=== PATIENT | female | born 1970 | race Caucasian/White ===

== ENCOUNTER 2025-07-10 07:15 | Day surgery (SDC) | payer OTHER, SELFPAY ==
[2025-07-10] VITALS (24 sets, daily range): BP systolic 81–121; BP diastolic 46–79; BMI 36.8; BMI 37.9
[2025-07-10] MEDS: NORMOSOL-R/PLASMALYTE-A 1000 IV ×2 (11:46→21:40)
[2025-07-10] MEDS: ZOFRAN 4 MG IV (17:04)
[2025-07-10] MEDS: SUBLIMAZE 25 MCG IV ×2 (18:40→19:23)
--- NOTE | 2025-07-10 20:37 | PTCARENOTE ---
Pt admitted to 2114 from PACU. VSS. AAOX3. c/o pain t/o abdomen. lap sites x 6 CDI, JOCELINE. Pt has minimal vaginal bleeding. Chambers draining clear yellow. Medications given. Call mendiola within reach.
[2025-07-10] MEDS: TORADOL 15 MG IV (21:33)
[2025-07-10] MEDS: LOPRESSOR 12.5 MG PO (21:33)
[2025-07-10] MEDS: COLACE PO (21:39)
[2025-07-10] MEDS: RISPERDAL 0.75 MG PO (21:41)
[2025-07-10] MEDS: DILAUDID 0.5 MG IV (23:54)
[2025-07-11] VITALS (7 sets, daily range): BP systolic 84–96; BP diastolic 48–58
--- NOTE | 2025-07-11 02:08 | W.PN.UPDATE ---
Update Note
Progress Note Update
Asked to evaluate patient for hypotension and tachycardia. BP 84/58, HR 103, afebrile 99. Resp 18, 98% on 2L NC. Patient denies any dizziness, headache, palpitations, SOB. Patient states that she does fatigue.
Ordered NSS 500 mls, stat CBC and BMP, and TT to Dr. Morocho, on-call Urology, to update on patient's status and for any further recommendations.
[2025-07-11] MEDS: NSS 500 IV ×2 (02:10→05:02)
[2025-07-11 02:19] LABS: Hematocrit 35.0 % (37.0-47.0); Hemoglobin 12.2 g/dL (12.0-16.0); Mean Corp Hgb Conc. 34.9 g/dL (33.0-37.0); Mean Corpuscular Volume 86.2 fL (81.0-99.0); Platelet Count 172 10^3/uL (130-400); Red Cell Dist. Width 12.9 % (11.5-14.5)
[2025-07-11 02:43] LABS: Blood Urea Nitrogen 10 mg/dl (7-17); Calcium 7.7 mg/dl (8.4-10.2); Carbon Dioxide 26 mmol/L (22-30); Chloride 104 mmol/L (98-107); Estimated Creatinine Clearance 92 ml/min; Glucose 140 mg/dl (70-99); Potassium 4.6 mmol/L (3.5-5.1); Sodium 135 mmol/L (135-145); eGFR > 60.00
[2025-07-11] MEDS: TORADOL 15 MG IV ×3 (03:58→15:41)
--- NOTE | 2025-07-11 04:00 | PTCARENOTE ---
0130 Pt bp 84/58, HR 100s, asymptomatic otherwise. Bleeding still minimal. JOSUE Cadena notified and ordered 1 time bolus 500 cc NSS as well as labs CBC and BMP. recheck after bolus bp 91/55 HR 98
[2025-07-11] MEDS: TYLENOL 650 MG PO (05:48)
--- NOTE | 2025-07-11 06:28 | PTCARENOTE ---
another 500 cc bolus was ordered by Dr. Morocho. bolus administered. castro catheter d/c'd at 0530 per orders. bp now 93/55 HR 95. Tylenol given for 7/10 abdomen/ pelvic region pain. pt going to order breakfast.
[2025-07-11] MEDS: NORMOSOL-R/PLASMALYTE-A 1000 IV ×2 (08:14→08:25)
--- NOTE | 2025-07-11 08:15 | W.PN.GYN ---
Today's Communication / Plan
-
Plan:
-Voiding trial
-Ambulation
-Possible D/c home
Physician Note
-
Assessment and plan:
55-year-old woman postop day 1 status post a total hysterectomy, bilateral salpingectomy, sacrocolpopexy, lysis of adhesions, posterior repair and sling. Patient surgery was complicated by lysis of adhesions otherwise she did not have any increase
in EBL during her surgery. Overnight the patient was hypotensive and mildly tachycardic so a fluid bolus was given and blood work revealed a stable hemoglobin and normal renal function and electrolytes. Patient rate harika stable this morning and
is overall meeting postoperative milestones. If patient continues to advance then plan for discharge home today.
Postoperative care:
Transition to oral medications
Advance to regular diet
Ambulation in room and in hallway
DVT prophylaxis: SCDs
Continue beta-john
Voiding trial pending
Postop day 1 labs pending
Bipolar disorder
Continue home medications
Dispo
Plan for discharge home
Subjective:
Patient states that she does have postoperative pain in her lower abdomen and pelvis. Denies any significant bleeding. Denies any dizziness fevers chills nausea or vomiting overnight. Patient states that she did have mild nausea immediately
postop however that is resolved this morning. She was able to eat a slight breakfast this morning including eggs and horan. She denies any significant abdominal distention. She has not been out of bed.
Objective
Intake and Output
07/09/25 07/10/25 07/11/25 07/12/25
06:59 06:59 06:59 06:59
Intake Total 3455 / 3455
Output Total 1400 / 1400
Balance 2054
Intake:
Oral fluids 480 / 480
IV fluids (Total) 1974
Normosol 1350 / 1350
IV piggybacks 1000 / 1000
Output:
Urine, Chambers 1400 / 1400
Vital Signs
Temp Pulse Resp BP Pulse Ox
98.8 F 90 18 93/57 95
07/11/25 07:52 07/11/25 07:52 07/11/25 07:52 07/11/25 07:52 07/11/25 07:52
Exam:
Abdomen: Soft nontender nondistended no guarding or rebound
Incisions: Clean dry intact
: No significant black vaginal bleeding light pad on
[2025-07-11] MEDS: PROTONIX 40 MG PO (08:17)
[2025-07-11] MEDS: ROXICODONE 5 MG PO ×2 (08:17→13:09)
[2025-07-11] MEDS: LOPRESSOR PO (08:17)
[2025-07-11] MEDS: COLACE 100 MG PO (08:17)
[2025-07-11 08:28] LABS: Hematocrit 33.5 % (37.0-47.0); Hemoglobin 11.3 g/dL (12.0-16.0); Mean Corp Hgb Conc. 33.7 g/dL (33.0-37.0); Mean Corpuscular Volume 87.9 fL (81.0-99.0); Platelet Count 163 10^3/uL (130-400); Red Cell Dist. Width 13.0 % (11.5-14.5)
[2025-07-11 08:42] LABS: Blood Urea Nitrogen 10 mg/dl (7-17); Carbon Dioxide 27 mmol/L (22-30); Chloride 105 mmol/L (98-107); Estimated Creatinine Clearance 79 ml/min; Potassium 4.3 mmol/L (3.5-5.1); Sodium 136 mmol/L (135-145)
--- NOTE | 2025-07-11 10:17 | CM ---
senior production manager reviewed patient's chart and met with patient and patient lives with her spouse in a one story home with 3 steps to enter, patient is independent with adl's and ambulation, no dme, patient drives.
PCP: Shahid Felix
Pharmacy: [facility] in [place]
Plan; Home with spouse when stable.
[2025-07-11] MEDS: NORMOSOL-R/PLASMALYTE-A IV (11:27)
--- NOTE | 2025-07-11 15:25 | W.PN.UPDATE ---
Update Note
Progress Note Update
patient is doing well and meeting postoperative milestones. ambulating in halls and passing flatus. tolerating regular diet. pain improving.
plan to d/c home today
== END 2025-07-11 16:30 | disposition home or self-care (01) ==
LOC: SDS 07:15
PROVIDERS: Nurse Practitioner Family; ATTENDING PHYSICIAN Obstetrics & Gynecology; FAMILY PHYSICIAN Internal Medicine
DX: N81.2 Incomplete uterovaginal prolapse (principal); I95.81 Postprocedural hypotension; G89.18 Other acute postprocedural pain; F31.9 Bipolar disorder, unspecified; N36.41 Hypermobility of urethra; N39.3 Stress incontinence (female) (male); D25.9 Leiomyoma of uterus, unspecified
CPT/HCPCS: 57425; 58571; 57250; 57288; 36415; 80048; 80051; 82565; 84520; 85027; 86850; 86900; 86901; 88305; 93005; C1763; C1771; G0378